=== PATIENT | female | born 1930 | race Caucasian/White ===

== ENCOUNTER → 2019-05-11 | Outpatient (CLI) | payer MEDICARE ==
[~2019-05-11] MED LIST: AMLO10 PO; DIPASPER; HYDACE5 PO; HYDCHL25 PO; IRBHYD150; Keflex500 MG PO; NEBI5 PO; NIFE30ER; OLME20 PO; PRAV20; RXHYDACE PO; Zocor20 MG PO
== END ==
LOC: LAB SHORT 15:09 → PLD 15:09
DX: D48.5 Neoplasm of uncertain behavior of skin (principal)
CPT/HCPCS: 88305